=== PATIENT | male | born 1965 | race Caucasian/White ===

== ENCOUNTER 2017-08-23 22:14 | Emergency (ER) | payer SELFPAY ==
[2017-08-23] MEDS: diphenhydrAMINE 50 MG/ML VIAL IVP (23:03)
[2017-08-23] MEDS: PROMETHAZINE 25 MG in IV NORMAL SALINE 50ML 50 ML IV (23:03)
[2017-08-23] MEDS: IV NORMAL SALINE 1000ML BAG 1,000 ML IV (23:04)
[2017-08-23 23:25] LABS: AGAP ISTAT 17 mmol/L (6-14); BUN ISTAT 13 mg/dL (8-26); CHLORIDE ISTAT 102 mmol/L (98-110); CREATININE ISTAT 0.7 mg/dL (0.5-1.4); GLUCOSE ISTAT 136 mg/dL (70-99); HEMATOCRIT ISTAT 45 % (37-52); HEMOGLOBIN ISTAT 15.3 g/dL (14-18); ION CA ISTAT 1.17 mmol/L (1.13-1.32); POTASSIUM ISTAT 3.6 mmol/L (3.5-5.0); SODIUM ISTAT 142 mmol/L (135-145); TOT CO2 ISTAT 27 mmol/L (23-32)
[2017-08-23] MEDS: KETOROLAC 30 MG/ML INJ. IV (23:29)
== END 2017-08-23 23:40 | disposition home or self-care (01) ==
LOC: ER 23:40
DX: G43.901 Migraine, unspecified, not intractable, with status migrainosus (principal); I10 Essential (primary) hypertension
CPT/HCPCS: 80047; 96365; 96375; 99284-25; J1200; J1885; J2550; J7030

== ENCOUNTER 2017-08-25 10:43 | Emergency (ER) | payer MEDICARE ==
[2017-08-25] MEDS: METOCLOPRAMIDE HCL 10 MG/2 ML VIAL. IV (11:19)
[2017-08-25] MEDS: diphenhydrAMINE 50 MG/ML VIAL IVP (11:20)
[2017-08-25] MEDS: IV NORMAL SALINE 1000ML BAG 1,000 ML IV ×2 (11:20→11:47)
[2017-08-25 11:26] LABS: ADD MAN DIFF? NO
[2017-08-25] MEDS: LABETALOL 20 MG/4 ML DISP.SYRIN. IVP (11:35)
[2017-08-25 11:38] LABS: BASO # 0.1 x10^3/uL (0.0-0.2); BASO % 0 % (0-3); EOS # 0.1 x10^3/uL (0.0-0.7); EOS % 1 % (0-3); HEMATOCRIT 46.1 % (39.0-53.0); HEMOGLOBIN 16.2 g/dL (13.0-17.5); LYMPH # 1.1 x10^3/uL (1.0-4.8); LYMPH % 9 % (24-48); MEAN CORPUSCULAR HEMOGLOBIN 32 pg (25-35); MEAN CORPUSCULAR HGB CONC 35 g/dL (31-37); MEAN CORPUSCULAR VOLUME 90 fL (79-100); MONO # 0.9 x10^3/uL (0.0-1.1); MONO % 7 % (0-9); NEUT # 10.7 x10^3uL (1.8-7.7); NEUT % 84 % (31-73); PLATELET COUNT 237 x10^3/uL (140-400); RED BLOOD COUNT 5.15 x10^6/uL (4.30-5.70); RED CELL DISTRIBUTION WIDTH 13.8 % (11.5-14.5); WHITE BLOOD COUNT 12.8 x10^3/uL (4.0-11.0)
[2017-08-25 11:42] LABS: ANION GAP 11 (6-14); BLOOD UREA NITROGEN 14 mg/dL (8-26); CARBON DIOXIDE 27 mmol/L (21-32); CHLORIDE 100 mmol/L (98-107); CREATININE 1.2 mg/dL (0.7-1.3); GFR 64.1; GLUCOSE 119 mg/dL (70-99); POTASSIUM 3.5 mmol/L (3.5-5.1); SODIUM 138 mmol/L (136-145)
[2017-08-25] MEDS: KETOROLAC 15 MG/ML VIAL. IV (12:42)
[2017-08-25] MEDS: DEXAMETHASONE SOD PHOS 20 MG/5 ML VIAL. IV (12:43)
[2017-08-25] MEDS: PROCHLORPERAZINE 10 MG/2 ML VIAL. IV (12:43)
== END 2017-08-25 14:35 | disposition home or self-care (01) ==
LOC: ER 10:43
DX: R51 Headache (principal); I10 Essential (primary) hypertension; G43.909 Migraine, unspecified, not intractable, without status migrainosus
CPT/HCPCS: 36415; 80048; 85025; 96374; 96375; 99284-25; J0780; J1100; J1200; J1885; J2765; J3490; J7030